=== PATIENT | female | born 1990 ===

== ENCOUNTER 2016-08-06 09:39 | Emergency (ER) | payer SELFPAY ==
[2016-08-06 09:40] VITALS: BMI 18.7
[2016-08-06 09:50] VITALS: O2SAT 100
[2016-08-06] MEDS ORDERED: Sodium Chloride 0.9% 1,000 ML IV ONE (10:13)
[2016-08-06] MEDS ORDERED: Sodium Chloride 0.9% 1,000 ML ONE (10:21)
[2016-08-06 10:34] LABS: RBC URINE 4 /hpf (0-3); URINE BILIRUBIN NEGATIVE (NEGATIVE); URINE BLOOD 1+ (NEGATIVE); URINE COLOR Yellow (YELLOW); URINE GLUCOSE (UA) NORMAL (Normal); URINE KETONE NEGATIVE (NEGATIVE); URINE LEUKOCYTE ESTERASE NEG Leu/uL (Negative); URINE PROTEIN NEGATIVE (NEGATIVE); URINE UROBILINOGEN NORMAL mg/dL (0.2-1.0); WBC URINE 2 /hpf (0-5)
[2016-08-06 10:36] LABS: BASO # 0.1 K/uL (0.0-0.2); BASO % 0.6 % (0.0-2.0); EOS # 0.1 K/uL (0.0-0.7); EOS % 0.8 % (0.0-4.0); HEMATOCRIT 33.5 % (34.0-47.0); LYMPH # 1.6 K/uL (1.0-4.3); LYMPH % 17.1 % (20.0-40.0); MEAN CELL VOLUME 82.3 fL (81.0-99.0); MEAN CORPUSCULAR HGB CONC 32.8 g/dL (33.0-37.0); MONO # 0.6 K/uL (0.0-0.8); MONO % 6.3 % (0.0-10.0); RED CELL DISTRIBUTION WIDTH 14.2 % (11.5-14.5); WHITE BLOOD COUNT 9.2 K/uL (4.8-10.8)
[2016-08-06 10:45] LABS: CHLORIDE 103 mmol/L (98-107); POTASSIUM 3.6 mmol/L (3.6-5.2); SODIUM 138 mmol/L (132-148)
[2016-08-06 10:47] LABS: BILIRUBIN,TOTAL 0.4 mg/dL (0.2-1.3); CARBON DIOXIDE 21 mmol/L (22-30); GFR AFRICAN-AMERICAN > 60
[2016-08-06 10:48] LABS: ALB/GLOB RATIO 1.2 (1.0-2.1); ALKALINE PHOSPHATASE 39 U/L (38-126); ALT/SGPT 20 U/L (9-52); AST/SGOT 21 U/L (14-36); BLOOD UREA NITROGEN 11 mg/dL (7-17); CALCIUM 8.8 mg/dl (8.6-10.4); GLUCOSE,RANDOM 83 mg/dL (65-105); TOTAL PROTEIN 7.2 g/dL (6.3-8.3)
--- NOTE | 2016-08-06 11:31 | C.PDOC ---
History Of Present Illness 26 y/o female, presents to the ED for evaluation of lower abdominal cramping pain and vaginal bleeding which began yesterday. Patient states she recently took an at-home test, and the result was positive. Patient states her LMP was 06/23/16 and denies history of previous pregnancies. Otherwise, patient denies fever, chills, back pain, nausea, vomiting, diarrhea, dysuria, or hematuria. Time Seen by Provider: 08/06/16 10:14 Chief Complaint (Nursing): Female Genitourinary History Per: Patient History/Exam Limitations: no limitations Onset/Duration Of Symptoms: Hrs Current Symptoms Are (Timing): Still Present Quality Of Discomfort: Cramping, "Pain" Associated Symptoms: denies: Fever, Chills, Nausea, Vomiting, Diarrhea, Urinary Symptoms (no dysuria/hematuria ) Alleviating Factors: None Additional History Per: Patient Abnormal Vaginal Bleeding: Yes Last Menstral Period: 06/23/16 Past Medical History Reviewed: Historical Data, Nursing Documentation, Vital Signs Vital Signs: Last Vital Signs Temp 98 F 08/06/16 12:41 Pulse 74 08/06/16 12:41 Resp 16 08/06/16 12:41 BP 106/70 08/06/16 12:41 Pulse Ox 100 08/06/16 12:41 - Medical History PMH: Anxiety, Asthma Surgical History: Hernia Repair Family History: States: Unknown Family Hx - Social History Hx Tobacco Use: No Hx Alcohol Use: Yes Hx Substance Use: No - Immunization History Hx Tetanus Toxoid Vaccination: No Hx Influenza Vaccination: No Hx Pneumococcal Vaccination: No Review Of Systems Except As Marked, All Systems Reviewed And Found Negative. Constitutional: Negative for: Fever, Chills Gastrointestinal: Positive for: Abdominal Pain (lower ). Negative for: Nausea, Vomiting, Diarrhea Genitourinary: Positive for: Vaginal Bleeding. Negative for: Dysuria, Hematuria Musculoskeletal: Negative for: Back Pain Physical Exam - Physical Exam Appears: Non-toxic, No Acute Distress Skin: Normal Color, Warm, Dry Head: Atraumatic, Normacephalic Eye(s): bilateral: Normal Inspection Oral Mucosa: Moist Neck: Normal ROM Chest: Symmetrical, No Deformity, No Tenderness Cardiovascular: Rhythm Regular, No Murmur Respiratory: Normal Breath Sounds, No Rales, No Rhonchi, No Wheezing Gastrointestinal/Abdominal: Soft, Tenderness (mild, suprapubic ), No Mass, No Distention, No Guarding, No Rebound Back: Normal Inspection, No Vertebral Tenderness, No Paraspinal Tenderness Extremity: Bilateral: Atraumatic, Normal Color And Temperature, Normal ROM Neurological/Psych: Oriented x3, Normal Speech Gait: Steady ED Course And Treatment - Laboratory Results Result Diagrams: 08/06/16 10:32 08/06/16 10:32 Lab Interpretation: No Acute Changes O2 Sat by Pulse Oximetry: 100 (on RA) Pulse Ox Interpretation: Normal - CT Scan/US Transvaginal US Other Rad Studies (CT/US): Interpreted By Me, Read By Radiologist, Radiology Report Reviewed CT/US Interpretation: Accession No. : [id number]. Patient Name / ID : MELISSA MORAN / [id number]. Exam Date : 08/06/2016 11:15:52 ( Approved ). Study Comment : Sex / Age : F / 26Y. Creator : Anahi Hawthorne MD. Dictator : Anahi Hawthorne MD. Rice Farmworker : Pipe Insulator Helper : Anahi Hawthorne MD. Approver2 : Report Date : 08/06/2016 11:57:35. My Comment : . Indication: vag bleed, and pain. Comparison: None available. Technique: Transvaginal pelvic ultrasound. Findings: The uterus measures approximately 8.2 x 4.1 x 4.8 cm. Anteverted. The endometrium appears heterogeneous and measures approximately 1.1 cm. No evidence of intrauterine gestational sac. The right ovary measures 2.8 x 1.5 x 2.1 cm. The left ovary measures 2.8 x 1.3 x 2.3 cm. Blood flow was demonstrated to both ovaries. Small pelvic free fluid. Impression: No evidence of intrauterine gestational sac. If indeed the patient is based on serum beta HCG values, the sonographic findings represent either: Very early IUP; embryonic demise; ectopic gestation. Follow-up with serial quantitative serum beta HCG measurements and post OBGYN follow-up is mandatory, since ectopic gestation cannot be excluded based only on sonographic findings. Heterogeneous endometrium measures approximately 1.1 cm. Question presence of blood products. Small pelvic free fluid. Medical Decision Making Medical Decision Making: Impression: 26 y/o female with lower abdominal pain, vaginal bleeding and is Plan: * labs * Transvaginal US * IV fluids Progress Notes: labs and US ordered and reviewed. Patient received IV Fluids. US Impression: No evidence of intrauterine gestational sac. If indeed the patient is based on serum beta HCG values, the sonographic findings represent either: Very early IUP; embryonic demise; ectopic gestation. Follow-up with serial quantitative serum beta HCG measurements and post OBGYN follow-up is mandatory, since ectopic gestation cannot be excluded based only on sonographic findings. Heterogeneous endometrium measures approximately 1.1 cm. Question presence of blood products. Small pelvic free fluid. Re-eval: Upon reevaluation patient resting comfortable in no distress. I explained lab and US findings to patient. I advised patient on the importance of follow up in 2-3 days for repeat bhcg and US. Patient verbalized understanding. Patient stable for discharge Disposition Counseled Patient/Family Regarding: Diagnosis, Need For Followup, Rx Given - Disposition Referrals: [facility] [Outside] 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 - Scribe Statement The provider has reviewed the documentation as recorded by the Scribe (Deepali Connolly) All medical record entries made by the Scribe were at my direction and personally dictated by me. I have reviewed the chart and agree that the record accurately reflects my personal performance of the history, physical exam, medical decision making, and the department course for this patient. I have also personally directed, reviewed, and agree with the discharge instructions and disposition.
--- NOTE | 2016-08-06 11:58 | US ---
Indication: vag bleed, and pain Comparison: None available. Technique: Transvaginal pelvic ultrasound. Findings: The uterus measures approximately 8.2 x 4.1 x 4.8 cm. Anteverted. The endometrium appears heterogeneous and measures approximately 1.1 cm. No evidence of intrauterine gestational sac. The right ovary measures 2.8 x 1.5 x 2.1 cm. The left ovary measures 2.8 x 1.3 x 2.3 cm. Blood flow was demonstrated to both ovaries. Small pelvic free fluid. Impression: No evidence of intrauterine gestational sac. If indeed the patient is based on serum beta HCG values, the sonographic findings represent either: Very early IUP; embryonic demise; ectopic gestation. Follow-up with serial quantitative serum beta HCG measurements and post OBGYN follow-up is mandatory, since ectopic gestation cannot be excluded based only on sonographic findings. Heterogeneous endometrium measures approximately 1.1 cm. Question presence of blood products. Small pelvic free fluid.
[2016-08-06 12:42] VITALS: BP 106/70; PULSE 74; RESP 16; TEMP 98
== END 2016-08-06 12:41 | disposition home or self-care (01) ==
LOC: C.ER 09:39
DX: O20.0 Threatened abortion (principal); Z3A.00 Weeks of gestation of pregnancy not specified
CPT/HCPCS: 76830; 80053; 81001; 84702; 84703; 85025; 86850; 86900; 96360; 99284; J7040

== ENCOUNTER 2017-01-14 13:43 | Emergency (ER) | payer OTHER ==
[2017-01-14 13:47] VITALS: RESP 16; O2SAT 99
--- NOTE | 2017-01-14 14:11 | C.PDOC ---
History Of Present Illness 26 yr old female presents to the ER with complaints if fever, sore throat and body aches since yesterday. Patient denies cough, chest pain, SOB, nausea, vomiting or headache. Time Seen by Provider: 01/14/17 13:50 Chief Complaint (Nursing): Flu-like Symptoms History Per: Patient History/Exam Limitations: no limitations Onset/Duration Of Symptoms: Days (1) Current Symptoms Are (Timing): Still Present Sick Contacts (Context): None Past Medical History Reviewed: Historical Data, Nursing Documentation, Vital Signs Vital Signs: Last Vital Signs Temp 98.5 F 01/14/17 13:45 Pulse 70 01/14/17 13:45 Resp 16 01/14/17 13:45 BP 125/88 01/14/17 13:45 Pulse Ox 99 01/14/17 14:50 - Medical History PMH: Anxiety, Asthma Surgical History: Hernia Repair Family History: States: No Known Family Hx - Social History Hx Tobacco Use: No Hx Alcohol Use: Yes Hx Substance Use: No - Immunization History Hx Tetanus Toxoid Vaccination: No Hx Influenza Vaccination: No Hx Pneumococcal Vaccination: No Review Of Systems Except As Marked, All Systems Reviewed And Found Negative. Constitutional: Positive for: Fever (Subjective), Other ((+) Body aches ) ENT: Positive for: Throat Pain (Sore throat ) Cardiovascular: Negative for: Chest Pain Respiratory: Negative for: Cough, Shortness of Breath Gastrointestinal: Negative for: Nausea, Vomiting Neurological: Negative for: Headache Physical Exam - Physical Exam Appears: Non-toxic, No Acute Distress Skin: Warm, Dry, No Rash Head: Atraumatic, Normacephalic Ear(s): Bilateral: Normal Oral Mucosa: Moist Throat: Erythema, Exudate Neck: Normal, Normal ROM, Supple Chest: Symmetrical, No Tenderness Cardiovascular: Rhythm Regular, No Murmur Respiratory: Normal Breath Sounds, No Rales, No Rhonchi, No Stridor, No Wheezing Extremity: Normal ROM, No Swelling Neurological/Psych: Oriented x3, Normal Speech, Normal Motor ED Course And Treatment - Laboratory Results Result Diagrams: 01/14/17 15:05 01/14/17 15:05 O2 Sat by Pulse Oximetry: 99 (RA) Pulse Ox Interpretation: Normal Medical Decision Making Medical Decision Making: PLAN: * Influenza * Rapid Strep * Tylenol PO while in er, pt later reported mild abdominal pain intially llq, later rlq. ct/ labs added. ct shows ruptured ovarian cyst. pain resolved in er. pt asking for d /c. Disposition - Disposition Disposition: HOME/ ROUTINE Disposition Time: 14:46 Condition: STABLE Additional Instructions: please follow up with your doctor/clinic. return to er with worsening symptoms or concerns. Prescriptions: Azithromycin [Zithromax] 250 mg PO DAILY #6 tab Instructions: Pharyngitis (ED), Acute Abdominal Pain (ED), Ovarian Cyst (ED) Forms: [employer] (Occitan) - Clinical Impression Clinical Impression: Pharyngitis, Abdominal pain - Scribe Statement The provider has reviewed the documentation as recorded by the Rudi Marsh Provider Attestation: All medical record entries made by the Rudi were at my direction and personally dictated by me. I have reviewed the chart and agree that the record accurately reflects my personal performance of the history, physical exam, medical decision making, and the department course for this patient. I have also personally directed, reviewed, and agree with the discharge instructions and disposition.
[2017-01-14] MEDS ORDERED: Sodium Chloride 0.9% 1,000 ML IV ONE (14:51)
[2017-01-14 15:11] LABS: BASO % 0.3 % (0.0-2.0); EOS % 0.3 % (0.0-4.0); HEMATOCRIT 38.5 % (34.0-47.0); LYMPH % 8.5 % (20.0-40.0); MEAN CELL VOLUME 83.2 fL (81.0-99.0); MEAN CORPUSCULAR HEMOGLOBIN 27.7 pg (27.0-31.0); MEAN CORPUSCULAR HGB CONC 33.3 g/dL (33.0-37.0); MEAN PLATELET VOLUME 8.4 fL (7.2-11.7); MONO # 0.8 K/uL (0.0-0.8); MONO % 6.7 % (0.0-10.0); PLATELET COUNT 241 K/uL (130-400); RED CELL DISTRIBUTION WIDTH 14.4 % (11.5-14.5); WHITE BLOOD COUNT 11.8 K/uL (4.8-10.8)
[2017-01-14 15:20] LABS: INR 1.1
[2017-01-14 15:22] LABS: CHLORIDE 99 mmol/L (98-107)
[2017-01-14 15:24] LABS: POTASSIUM 4.5 mmol/L (3.6-5.2); SODIUM 136 mmol/L (132-148)
[2017-01-14 15:26] LABS: ALB/GLOB RATIO 1.2 (1.0-2.1); ALKALINE PHOSPHATASE 51 U/L (38-126); ALT/SGPT 24 U/L (9-52); AST/SGOT 29 U/L (14-36); BILIRUBIN,TOTAL 0.6 mg/dL (0.2-1.3); BLOOD UREA NITROGEN 16 mg/dL (7-17); CARBON DIOXIDE 23 mmol/L (22-30); GFR AFRICAN-AMERICAN > 60; TOTAL PROTEIN 8.4 g/dL (6.3-8.3)
[2017-01-14 15:27] LABS: CALCIUM 9.8 mg/dl (8.6-10.4); GLUCOSE,RANDOM 72 mg/dL (65-105)
[2017-01-14 15:30] LABS: URINE BACTERIA RARE (<OCC); URINE BILIRUBIN NEGATIVE (NEGATIVE); URINE BLOOD NEGATIVE (NEGATIVE); URINE COLOR Straw (YELLOW); URINE GLUCOSE (UA) NORMAL (Normal); URINE KETONE TRACE mg/dL (NEGATIVE); URINE LEUKOCYTE ESTERASE NEG Leu/uL (Negative); URINE PROTEIN NEGATIVE (NEGATIVE); URINE UROBILINOGEN NORMAL mg/dL (0.2-1.0); WBC URINE < 1 /hpf (0-5)
[2017-01-14 15:41] LABS: BASOPHIL 1 % (0-2); NEUTROPHIL 88 % (50-75); TOTAL CELLS COUNTED 100
[2017-01-14] MEDS ORDERED: Iodixanol 320 MG/ML 100 ML BOTTLE IV ONE (16:08)
--- NOTE | 2017-01-14 17:06 | CT ---
PROCEDURE: CT Abdomen and Pelvis with contrast HISTORY: lower abd pain COMPARISON: None. TECHNIQUE: Contrast dose: Visipaque 320, 100 cc. Radiation dose: Total exam DLP = 200.38 mGy-cm. This CT exam was performed using one or more of the following dose reduction techniques: Automated exposure control, adjustment of the mA and/or kV according to patient size, and/or use of iterative reconstruction technique. FINDINGS: LOWER THORAX: Unremarkable. LIVER: Unremarkable. No gross lesion or ductal dilatation. GALLBLADDER AND BILE DUCTS: Unremarkable. PANCREAS: Unremarkable. No gross lesion or ductal dilatation. SPLEEN: Unremarkable. ADRENALS: Unremarkable. No mass. KIDNEYS AND URETERS: Unremarkable. No hydronephrosis. No solid mass. VASCULATURE: Unremarkable. No aortic aneurysm. BOWEL: Unremarkable. No obstruction. No gross mural thickening. The lack of oral contrast limits evaluation of the bowel. Retained fecal material obscures colon. APPENDIX: Not identified. Clinically correlate. PERITONEUM: No abdominal ascites region however there is a mild amount of fluid in the right as compartment. LYMPH NODES: Unremarkable. No enlarged lymph nodes. BLADDER: Unremarkable. REPRODUCTIVE: Ruptured right adnexal cyst is suggested which may be the cause limited cul-de-sac and pibwg-bzipfgg-omyi-left pelvic fluid. Inhomogeneous enhancing the uterus is suspicious for uterine fibroids and a small on fluid is suggestive of the endometrial cavity. BONES: No acute fracture. OTHER FINDINGS: None. IMPRESSION: 1. Limited right greater left adnexal fluid extending through the cul sac minimally with a probable collapsed right adnexal cyst suggestive of ovarian cyst rupture recently. Clinically correlate. 2. The remaining examination is unremarkable.
[2017-01-14 17:28] VITALS: BP 122/79; PULSE 84; TEMP 97.8
== END 2017-01-14 17:27 | disposition home or self-care (01) ==
LOC: C.ER 13:43
DX: R10.9 Unspecified abdominal pain (principal); J02.9 Acute pharyngitis, unspecified
CPT/HCPCS: 74177; 80053; 81001; 83690; 84703; 85025; 85610; 85730; 87070; 87430; 87804; 96361; 96374; 99283; C9113; J7040; Q9967

== ENCOUNTER 2017-01-16 00:54 | Emergency (ER) | payer OTHER ==
[2017-01-16 01:22] VITALS: RESP 20
--- NOTE | 2017-01-16 01:25 | C.PDOC ---
History Of Present Illness The patient presents to the ED for evaluation of fever and sore throat which began around 3 days ago. Patient was evaluated in [facility] on 01/14 for similar symptoms and had a negative workup. Patient denies ear pain, cough, sick contacts. Time Seen by Provider: 01/16/17 01:25 Chief Complaint (Nursing): Flu-like Symptoms History Per: Patient History/Exam Limitations: no limitations Onset/Duration Of Symptoms: Days (3) Current Symptoms Are (Timing): Still Present Location Of Pain: Throat Sick Contacts (Context): None Associated Symptoms: Fever, Sore Throat. denies: Cough Ear Symptoms: Bilateral: None Severity: Mild Pain Scale Rating Of: 2 Recent travel outside of the [place]: No Additional History Per: Patient Past Medical History Reviewed: Historical Data, Nursing Documentation, Vital Signs Vital Signs: Last Vital Signs Temp 103.1 F H 01/16/17 01:03 Pulse 140 H 01/16/17 01:03 Resp 20 01/16/17 01:03 BP 118/87 01/16/17 01:03 Pulse Ox 97 01/16/17 02:29 - Medical History PMH: Anxiety, Asthma Surgical History: Hernia Repair Family History: States: Unknown Family Hx - Social History Hx Tobacco Use: No Hx Alcohol Use: Yes Hx Substance Use: No - Immunization History Hx Tetanus Toxoid Vaccination: No Hx Influenza Vaccination: No Hx Pneumococcal Vaccination: No Review Of Systems Constitutional: Positive for: Fever ENT: Positive for: Throat Pain. Negative for: Ear Pain, Nose Discharge, Nose Congestion Cardiovascular: Negative for: Chest Pain, Palpitations Respiratory: Negative for: Cough, Shortness of Breath Gastrointestinal: Negative for: Nausea, Vomiting, Abdominal Pain Skin: Negative for: Rash, Lesions, Jaundice, Bruising Neurological: Negative for: Weakness, Numbness Physical Exam - Physical Exam Appears: Non-toxic, No Acute Distress Skin: Warm, Dry Head: Normacephalic Eye(s): bilateral: Normal Inspection Ear(s): Bilateral: Normal Nose: No Discharge Oral Mucosa: Moist Throat: Erythema (mild), No Exudate Neck: Supple Chest: Symmetrical, No Deformity, No Tenderness Cardiovascular: Rhythm Regular, No Murmur Respiratory: No Rales, No Rhonchi, No Wheezing Extremity: Normal ROM Neurological/Psych: Oriented x3 Gait: Steady ED Course And Treatment - Laboratory Results Result Diagrams: 01/16/17 01:34 09/24/17 01:34 O2 Sat by Pulse Oximetry: 97 (on RA) Pulse Ox Interpretation: Normal Progress Note: labs ordered and reviewed. Patient received Toradol IVP, Tylenol PO, Solu-Medrol IVP, and IV Fluids. Reevaluation Time: 02:49 Reassessment Condition: Improved Disposition Counseled Patient/Family Regarding: Studies Performed, Diagnosis, Need For Followup, Rx Given - Disposition Referrals: [facility] [Outside] [facility] [Outside] Disposition: HOME/ ROUTINE Disposition Time: 01:25 Condition: FAIR Prescriptions: Azithromycin [Zithromax Tri-Elpidio] 500 mg PO DAILY #3 tablet Instructions: Pharyngitis (ED) Forms: [facility] (Filipino) - Clinical Impression Clinical Impression: Pharyngitis - Scribe Statement The provider has reviewed the documentation as recorded by the Scribe (Deepali Connolly) Provider Attestation: All medical record entries made by the Scribe were at my direction and personally dictated by me. I have reviewed the chart and agree that the record accurately reflects my personal performance of the history, physical exam, medical decision making, and the department course for this patient. I have also personally directed, reviewed, and agree with the discharge instructions and disposition.
[2017-01-16] MEDS ORDERED: Sodium Chloride 0.9% 1,000 ML IV ONE (01:28)
[2017-01-16] MEDS ORDERED: MethylPREDNISolone 40 mg Vial IVP STA (01:28)
[2017-01-16 01:37] LABS: BASO % 0.3 % (0.0-2.0); EOS % 0.1 % (0.0-4.0); HEMATOCRIT 39.6 % (34.0-47.0); LYMPH # 1.1 K/uL (1.0-4.3); LYMPH % 8.1 % (20.0-40.0); MEAN CELL VOLUME 81.9 fL (81.0-99.0); MEAN CORPUSCULAR HEMOGLOBIN 27.6 pg (27.0-31.0); MEAN CORPUSCULAR HGB CONC 33.7 g/dL (33.0-37.0); MEAN PLATELET VOLUME 8.2 fL (7.2-11.7); MONO # 1.1 K/uL (0.0-0.8); MONO % 7.9 % (0.0-10.0); PLATELET COUNT 225 K/uL (130-400); RED CELL DISTRIBUTION WIDTH 14.2 % (11.5-14.5); WHITE BLOOD COUNT 13.3 K/uL (4.8-10.8)
[2017-01-16] MEDS ORDERED: Sodium Chloride 0.9% 1,000 ML ONE (01:38)
[2017-01-16 01:40] LABS: RBC URINE 5 /hpf (0-3); URINE BACTERIA RARE (<OCC); URINE BILIRUBIN NEGATIVE (NEGATIVE); URINE BLOOD NEGATIVE (NEGATIVE); URINE COLOR Yellow (YELLOW); URINE GLUCOSE (UA) NORMAL (Normal); URINE KETONE TRACE mg/dL (NEGATIVE); URINE LEUKOCYTE ESTERASE NEG Leu/uL (Negative); URINE PROTEIN NEGATIVE (NEGATIVE); URINE UROBILINOGEN NORMAL mg/dL (0.2-1.0); WBC URINE 3 /hpf (0-5)
[2017-01-16 01:46] LABS: CHLORIDE 97 mmol/L (98-107)
[2017-01-16 01:47] LABS: SODIUM 135 mmol/L (132-148)
[2017-01-16 01:50] LABS: BLOOD UREA NITROGEN 13 mg/dL (7-17); CALCIUM 9.6 mg/dl (8.6-10.4); CARBON DIOXIDE 22 mmol/L (22-30); GFR AFRICAN-AMERICAN > 60; GLUCOSE,RANDOM 88 mg/dL (65-105)
[2017-01-16] MEDS ORDERED: cefTRIAXone IV 1 gm in Dextros 50 ML IVPB ONE ×2 (02:52→03:12)
[2017-01-16 02:59] LABS: NEUTROPHIL 83 % (50-75); TOTAL CELLS COUNTED 100
[2017-01-16] MEDS ORDERED: cefTRIAXone IV 1 gm in Dextros 1 GM in Dextrose 5% In Water 50 ML IVPB STA (03:25)
[2017-01-16 03:53] VITALS: BP 112/72; PULSE 112; TEMP 98.1; O2SAT 98
== END 2017-01-16 03:53 | disposition home or self-care (01) ==
LOC: C.ER 00:54
DX: J02.9 Acute pharyngitis, unspecified (principal)
CPT/HCPCS: 80048; 81001; 85025; 96361; 96374; 96375; 99283; J0696; J1885; J2920; J7040

== ENCOUNTER 2017-03-22 10:30 | Emergency (ER) | payer OTHER ==
[2017-03-22 12:09] LABS: RBC URINE 1 /hpf (0-3); URINE BACTERIA RARE (<OCC); URINE BILIRUBIN NEGATIVE (NEGATIVE); URINE BLOOD NEGATIVE (NEGATIVE); URINE COLOR Yellow (YELLOW); URINE GLUCOSE (UA) NORMAL (Normal); URINE KETONE NEGATIVE (NEGATIVE); URINE LEUKOCYTE ESTERASE 1+ Leu/uL (Negative); URINE PROTEIN NEGATIVE (NEGATIVE); URINE UROBILINOGEN NORMAL mg/dL (0.2-1.0); WBC URINE 11 /hpf (0-5)
--- NOTE | 2017-03-22 12:18 | C.PDOC ---
History Of Present Illness 27 y/o female presents to ED with c/o LLQ abdominal pain for 3 days. Patient describes pain as sharp. Denies nausea, vomiting, diarrhea, fever, chills, or urinary symptoms. Patient has not taken any medications for current symptoms. Time Seen by Provider: 03/22/17 11:27 Chief Complaint (Nursing): Abdominal Pain History Per: Patient History/Exam Limitations: no limitations Onset/Duration Of Symptoms: Days (3) Current Symptoms Are (Timing): Still Present Location Of Pain/Discomfort: LLQ Radiation Of Pain To:: None Quality Of Discomfort: Sharp, "Pain" Associated Symptoms: denies: Fever, Chills, Nausea, Vomiting, Diarrhea, Urinary Symptoms Recent travel outside of the [place]: No Past Medical History Reviewed: Historical Data, Nursing Documentation, Vital Signs Vital Signs: Last Vital Signs Temp 97.9 F 03/22/17 10:56 Pulse 71 03/22/17 10:56 Resp 18 03/22/17 10:56 BP 116/82 03/22/17 10:56 Pulse Ox 100 03/22/17 15:02 - Medical History PMH: Anxiety, Asthma Surgical History: Hernia Repair Family History: States: Unknown Family Hx - Social History Hx Tobacco Use: No Hx Alcohol Use: Yes Hx Substance Use: No - Immunization History Hx Tetanus Toxoid Vaccination: No Hx Influenza Vaccination: No Hx Pneumococcal Vaccination: No Review Of Systems Except As Marked, All Systems Reviewed And Found Negative. Constitutional: Negative for: Fever, Chills Cardiovascular: Negative for: Chest Pain Respiratory: Negative for: Cough, Shortness of Breath Gastrointestinal: Positive for: Abdominal Pain. Negative for: Nausea, Vomiting Genitourinary: Negative for: Dysuria, Hematuria, Vaginal Bleeding Skin: Negative for: Rash Physical Exam - Physical Exam Appears: Non-toxic, No Acute Distress Skin: Normal Color, Warm, Dry Head: Atraumatic, Normacephalic Oral Mucosa: Moist Chest: Symmetrical Cardiovascular: Rhythm Regular Respiratory: Normal Breath Sounds, No Rales, No Rhonchi, No Wheezing Gastrointestinal/Abdominal: Bowel Sounds, Soft, Tenderness (minimal, LLQ/LUQ), No Guarding, No Rebound Back: Normal Inspection, No CVA Tenderness Extremity: Normal ROM, Capillary Refill (< 2 sec.) Neurological/Psych: Oriented x3, Normal Speech, Normal Cognition ED Course And Treatment - Laboratory Results Result Diagrams: 03/22/17 12:24 03/22/17 12:24 O2 Sat by Pulse Oximetry: 100 (RA) Pulse Ox Interpretation: Normal - CT Scan/US Pelvic/TV Ultrasound Other Rad Studies (CT/US): Read By Radiologist, Radiology Report Reviewed CT/US Interpretation: IMPRESSION: Unremarkable pelvic ultrasound. Medical Decision Making Medical Decision Making: Assessment: abdominal pain Plan: * Labs * Ultrasound * Reassess Progress: On reevaluation, patient feels better, with improvement of abdominal pain. Labs normal, ultrasound negative. Will discharge home, dx of abdominal pain, advised follow up with PMD/clinic. Disposition Counseled Patient/Family Regarding: Studies Performed, Diagnosis, Need For Followup, Rx Given - Disposition Disposition: HOME/ ROUTINE Disposition Time: 15:00 Condition: IMPROVED Additional Instructions: follow up with your doctor in 2 days call to make an appointment take medications as prescribed return to hospital if symptoms worsens or progress Prescriptions: Naproxen [Naprosyn] 500 mg PO BID PRN #16 tab PRN Reason: Pain, Moderate (4-7) Instructions: Abdominal Pain (ED) Forms: [facility] (Australian), General Discharge Instructions - Clinical Impression Clinical Impression: Abdominal pain - Scribe Statement The provider has reviewed the documentation as recorded by the Scribe SM All medical record entries made by the Scribe were at my direction and personally dictated by me. I have reviewed the chart and agree that the record accurately reflects my personal performance of the history, physical exam, medical decision making, and the department course for this patient. I have also personally directed, reviewed, and agree with the discharge instructions and disposition.
[2017-03-22 12:32] LABS: BASO # 0.1 K/uL (0.0-0.2); BASO % 0.7 % (0.0-2.0); EOS % 0.4 % (0.0-4.0); HEMATOCRIT 38.7 % (34.0-47.0); LYMPH # 1.5 K/uL (1.0-4.3); LYMPH % 16.9 % (20.0-40.0); MEAN CELL VOLUME 83.2 fL (81.0-99.0); MEAN CORPUSCULAR HEMOGLOBIN 27.5 pg (27.0-31.0); MEAN CORPUSCULAR HGB CONC 33.1 g/dL (33.0-37.0); MEAN PLATELET VOLUME 8.6 fL (7.2-11.7); MONO # 0.6 K/uL (0.0-0.8); MONO % 6.7 % (0.0-10.0); NRBC % 0.2 % (0.0-2.0); RED CELL DISTRIBUTION WIDTH 14.9 % (11.5-14.5); WHITE BLOOD COUNT 8.7 K/uL (4.8-10.8)
[2017-03-22 12:44] LABS: ALB/GLOB RATIO 1.4 (1.0-2.1); ALKALINE PHOSPHATASE 45 U/L (38-126); ALT/SGPT 30 U/L (9-52); AST/SGOT 22 U/L (14-36); BILIRUBIN,TOTAL 0.9 mg/dL (0.2-1.3); BLOOD UREA NITROGEN 13 mg/dL (7-17); CALCIUM 8.6 mg/dl (8.6-10.4); CARBON DIOXIDE 22 mmol/L (22-30); CHLORIDE 99 mmol/L (98-107); GFR AFRICAN-AMERICAN > 60; GLUCOSE,RANDOM 70 mg/dL (65-105); POTASSIUM 3.8 mmol/L (3.6-5.2); SODIUM 135 mmol/L (132-148); TOTAL PROTEIN 7.7 g/dL (6.3-8.3)
--- NOTE | 2017-03-22 14:50 | US ---
HISTORY: abd pain COMPARISON: None available. TECHNIQUE: Grayscale, color Doppler and spectral evaluation of the pelvis, performed transabdominally and transvaginally. FINDINGS: UTERUS: Measures 8.1 x 3.7 x 5.0 cm. Anteverted. Normal in size and appearance. No fibroid or other mass lesion seen. ENDOMETRIUM: Measures 13 mm in diameter. Unremarkable. CERVIX: No cervical abnormality identified. RIGHT OVARY: Measures 2.9 x 1.7 x 2.3 cm. No solid mass. Normal flow. LEFT OVARY: Measures 4.1 x 2.2 x 3.0 cm. No solid mass. Normal flow. Dominant follicle measuring 1.5 x 1.5 x 0.8 centimeter. FREE FLUID: Small volume free fluid in the cul-de-sac. OTHER FINDINGS: None. IMPRESSION: Unremarkable pelvic ultrasound.
[2017-03-22 15:29] VITALS: BP 109/75; PULSE 67; RESP 16; TEMP 97.5; O2SAT 98
== END 2017-03-22 15:50 | disposition home or self-care (01) ==
LOC: C.ER 10:30
DX: R10.32 Left lower quadrant pain (principal)
CPT/HCPCS: 76830; 76856; 80053; 81001; 83690; 84703; 85025; 96374; 96375; 99285; J1885

== ENCOUNTER 2018-04-22 06:36 | Emergency (ER) | payer OTHER ==
[2018-04-22 06:44] VITALS: TEMP 98.3
[2018-04-22] MEDS ORDERED: Albuterol-Ipratrop 3 mg / 0.5 (3 ml) UD INH STA ×2 (07:06→08:05)
[2018-04-22] MEDS ORDERED: guaiFENesin 100 mg/5 ml Syrup UD PO STA (07:07)
[2018-04-22] MEDS ORDERED: guaiFENesin 100 mg/5 ml Syrup UD ONE (07:23)
[2018-04-22] MEDS ORDERED: Albuterol-Ipratrop 3 mg / 0.5 (3 ml) UD ONE ×2 (07:23→08:18)
--- NOTE | 2018-04-22 07:46 | C.PDOC ---
History Of Present Illness 28 year old female presents to the ED for evaluation of a dry, non-productive cough which began at around 0300 today. Patient has a history of asthma, and states she recently ran out of her albuterol pump. Patient denies fever, chills. Time Seen by Provider: 04/22/18 07:02 Chief Complaint (Nursing): Cough, Cold, Congestion History Per: Patient History/Exam Limitations: no limitations Onset/Duration Of Symptoms: Hrs Current Symptoms Are (Timing): Still Present Associated Symptoms: Cough. denies: Sputum Production, Fever Additional History Per: Patient Past Medical History Reviewed: Historical Data, Nursing Documentation, Vital Signs Vital Signs: Last Vital Signs Temp 98.3 F 04/22/18 06:40 Pulse 104 H 04/22/18 06:50 Resp 16 04/22/18 06:50 BP 139/92 H 04/22/18 06:50 Pulse Ox 99 04/22/18 06:50 - Medical History PMH: Anxiety, Asthma Surgical History: Hernia Repair Family History: States: Unknown Family Hx - Social History Hx Tobacco Use: No Hx Alcohol Use: Yes Hx Substance Use: No - Immunization History Hx Tetanus Toxoid Vaccination: No Hx Influenza Vaccination: No Hx Pneumococcal Vaccination: No Review Of Systems Constitutional: Negative for: Fever, Chills Respiratory: Positive for: Cough. Negative for: Sputum Physical Exam - Physical Exam Appears: Non-toxic, No Acute Distress Skin: Normal Color, Warm, Dry Head: Atraumatic, Normacephalic Eye(s): bilateral: Normal Inspection Oral Mucosa: Moist Neck: Supple Chest: Symmetrical, No Deformity, No Tenderness Cardiovascular: Rhythm Regular, No Murmur Respiratory: Normal Breath Sounds, No Rales, No Rhonchi, No Wheezing, Other (dry, non-productive cough ) Extremity: Normal ROM, Capillary Refill (less than 2 seconds ) Neurological/Psych: Oriented x3, Normal Speech, Normal Cognition ED Course And Treatment O2 Sat by Pulse Oximetry: 99 Pulse Ox Interpretation: Normal Progress Note: Albuterol INH, Motrin PO, Robitussin PO given. Medical Decision Making Medical Decision Making: mild asthma exacerbation lost her MDI improved with ED nebs never had nebs machine @ home. refill MDI Disposition Doctor Will See Patient In The: Office Counseled Patient/Family Regarding: Studies Performed, Diagnosis - Disposition Referrals: [facility] [Outside] [employer] [facility] [place] [Outside] [facility] [Outside] [facility] [Outside] Disposition: HOME/ ROUTINE Disposition Time: 07:45 Condition: GOOD Additional Instructions: bomba de Albuterol 2 puffs cada 4 horas chasidy necessario Siempre usa con el Aerochamber Spacer (tubo plastico) para que funccion'a mejor Sigue con nuest[facility] Familiar chasidy necessario Prescriptions: Albuterol HFA [Ventolin HFA 90 mcg/actuation (8 g)] 2 puff IH Q4H PRN #1 puff PRN Reason: asthma Spacer, Inhalation [Aerochamber] 1 dev IH DAILY #1 dev Instructions: Asthma, Adult (DC) Forms: [employer] (Faroese), Work Excuse Print Language: [place]IZ[place] - Clinical Impression Clinical Impression: Asthma attack - Scribe Statement The provider has reviewed the documentation as recorded by the Scribe (Deepali Connolly) Provider Attestation: All medical record entries made by the Scribe were at my direction and personally dictated by me. I have reviewed the chart and agree that the record accurately reflects my personal performance of the history, physical exam, medical decision making, and the department course for this patient. I have also personally directed, reviewed, and agree with the discharge instructions and disposition.
[2018-04-22 09:04] VITALS: BP 126/88; PULSE 112; RESP 18
[2018-04-22 12:26] VITALS: O2SAT 99
== END 2018-04-22 08:55 | disposition home or self-care (01) ==
LOC: C.ER 06:36
DX: J45.909 Unspecified asthma, uncomplicated (principal)

== ENCOUNTER 2018-09-03 05:10 | Emergency (ER) | payer OTHER ==
[2018-09-03 06:09] LABS: BASO # 0.1 K/uL (0.0-0.2); BASO % 0.9 % (0.0-2.0); EOS # 0.1 K/uL (0.0-0.7); EOS % 0.5 % (0.0-4.0); HEMOGLOBIN 15.1 g/dL (11.0-16.0); LYMPH # 2.4 K/uL (1.0-4.3); LYMPH % 23.2 % (20.0-40.0); MEAN CELL VOLUME 84.8 fL (81.0-99.0); MONO # 0.3 K/uL (0.0-0.8); MONO % 3.4 % (0.0-10.0); NEUT # 7.3 K/uL (1.8-7.0); NRBC % 0.1 % (0.0-2.0); RBC 5.4 Mil/uL (3.80-5.20); RED CELL DISTRIBUTION WIDTH 15.4 % (11.5-14.5); WHITE BLOOD COUNT 10.1 K/uL (4.8-10.8)
[2018-09-03 06:21] LABS: ALB/GLOB RATIO 1.2 (1.0-2.1); ALBUMIN 5.2 g/dL (3.5-5.0); ALT/SGPT 15 U/L (9-52); AST/SGOT 29 U/L (14-36); BLOOD UREA NITROGEN 13 mg/dL (7-17); CALCIUM 9.7 mg/dl (8.6-10.4); GFR NON-AFRICAN AMERICAN > 60; LIPASE 105 U/L (23-300); SQUAMOUS EPITHIAL 3 /hpf (0-5); URINE BACTERIA RARE (<OCC); URINE BILIRUBIN NEGATIVE (NEGATIVE); URINE BLOOD 2+ (NEGATIVE); URINE CLARITY Clear (Clear); URINE COLOR Straw (YELLOW); URINE GLUCOSE (UA) NORMAL (Normal); URINE LEUKOCYTE ESTERASE TRACE Leu/uL (Negative); URINE PROTEIN NEGATIVE (NEGATIVE); URINE UROBILINOGEN NORMAL mg/dL (0.2-1.0)
[2018-09-03 06:22] LABS: HCG,QUALITATIVE URINE NEGATIVE (NEGATIVE)
--- NOTE | 2018-09-03 07:26 | C.PDOC ---
History Of Present Illness 28 year old female presents to the Emergency Department complaining of sudden onset of intermittent left sided abdominal quadrant since waking up this morning. Reports pain radiates to the left lower quadrant and back. Denies any fever, diarrhea, GI bleeding, chest pain, or urinary symptoms. States previous history of abdominal surgeries including hernia repair on left abdomen many year ago in [facility]. Denies any trauma. Time Seen by Provider: 09/03/18 07:11 Chief Complaint (Nursing): Abdominal Pain History Per: Patient History/Exam Limitations: no limitations Onset/Duration Of Symptoms: Hrs Current Symptoms Are (Timing): Still Present Location Of Pain/Discomfort: LUQ, LLQ Radiation Of Pain To:: Back Associated Symptoms: Back Pain. denies: Fever, Chills, Nausea, Vomiting, Diarrhea, Chest Pain, Urinary Symptoms Past Medical History Reviewed: Historical Data, Nursing Documentation, Vital Signs Vital Signs: Last Vital Signs Temp 98.1 F 09/03/18 05:19 Pulse 78 09/03/18 05:19 Resp 22 09/03/18 05:19 BP 112/79 09/03/18 05:19 Pulse Ox 99 09/03/18 05:19 Primary Care Provider: Non [facility] Provider, - Medical History PMH: Anxiety, Asthma Surgical History: Hernia Repair Family History: States: No Known Family Hx - Social History Hx Tobacco Use: No Hx Alcohol Use: Yes Hx Substance Use: No - Immunization History Hx Tetanus Toxoid Vaccination: No Hx Influenza Vaccination: No Hx Pneumococcal Vaccination: No Review Of Systems Except As Marked, All Systems Reviewed And Found Negative. Constitutional: Negative for: Fever, Chills Cardiovascular: Negative for: Chest Pain Respiratory: Negative for: Cough, Shortness of Breath Gastrointestinal: Positive for: Abdominal Pain. Negative for: Nausea, Vomiting, Diarrhea Genitourinary: Negative for: Dysuria, Hematuria Musculoskeletal: Positive for: Back Pain Physical Exam - Physical Exam Appears: Non-toxic, No Acute Distress Skin: Warm, Dry, No Rash Head: Normacephalic Eye(s): bilateral: Normal Inspection, PERRL, EOMI Nose: Normal Oral Mucosa: Moist Neck: Supple Chest: Symmetrical, No Tenderness Cardiovascular: Rhythm Regular, No Murmur Respiratory: Normal Breath Sounds, No Rales, No Rhonchi, No Wheezing Gastrointestinal/Abdominal: Bowel Sounds (Normoactive), Soft, Tenderness (mild to moderate left lower quadrant tenderness), No Distention, No Guarding, No Rebound Back: No CVA Tenderness Extremity: No Pedal Edema Extremity: Bilateral: Atraumatic, Normal Color And Temperature, Normal ROM Neurological/Psych: Oriented x3, Normal Speech Gait: Steady ED Course And Treatment - Laboratory Results Result Diagrams: 09/03/18 06:05 09/03/18 06:05 Lab Results: Total Bilirubin 0.2 mg/dL (0.2-1.3) 09/03/18 06:05 AST 29 U/L (14-36) 09/03/18 06:05 ALT 15 U/L (9-52) 09/03/18 06:05 Alkaline Phosphatase 63 U/L (38-126) 09/03/18 06:05 Total Protein 9.7 g/dL (6.3-8.3) H 09/03/18 06:05 Albumin 5.2 g/dL (3.5-5.0) H 09/03/18 06:05 Globulin 4.5 gm/dL (2.2-3.9) H 09/03/18 06:05 Albumin/Globulin Ratio 1.2 (1.0-2.1) 09/03/18 06:05 Lipase 105 U/L (23-300) 09/03/18 06:05 Urine Color Straw (YELLOW) 09/03/18 06:05 Urine Clarity Clear (Clear) 09/03/18 06:05 Urine pH 5.0 (5.0-8.0) 09/03/18 06:05 Ur Specific [place] 1.009 (1.003-1.030) 09/03/18 06:05 Urine Protein Negative mg/dL (NEGATIVE) 09/03/18 06:05 Urine Glucose (UA) Normal mg/dL (Normal) 09/03/18 06:05 Urine Ketones Negative mg/dL (NEGATIVE) 09/03/18 06:05 Urine Blood 2+ (NEGATIVE) H 09/03/18 06:05 Urine Nitrate Negative (NEGATIVE) 09/03/18 06:05 Urine Bilirubin Negative (NEGATIVE) 09/03/18 06:05 Urine Urobilinogen Normal mg/dL (0.2-1.0) 09/03/18 06:05 Ur Leukocyte Esterase Trace Cherise/uL (Negative) 09/03/18 06:05 Urine WBC (Auto) 16 /hpf (0-5) H 09/03/18 06:05 Urine RBC (Auto) 3 /hpf (0-3) 09/03/18 06:05 Ur Squamous Epith Cells 3 /hpf (0-5) 09/03/18 06:05 Urine Bacteria Rare (<OCC) 09/03/18 06:05 Urine HCG, Qual Negative (NEGATIVE) 09/03/18 06:05 Urine HCG, Qual Negative (NEGATIVE) 09/03/18 06:05 O2 Sat by Pulse Oximetry: 99 (RA) Pulse Ox Interpretation: Normal Medical Decision Making Medical Decision Making: Plan - CT abd/pel - EKG - UA - Bloodwork CT scan showed inflammation of the small bowel but otherwise unremarkable. On re-exam, the patient reports improvement of symptoms. Lungs are CTA, heart is RRR, abdomen is soft, non-tender and tolerating PO well. Pt is ambulatory in the ED with steady gait. Disposition - Disposition Referrals: [facility] [Outside] [facility] [Outside] Disposition: HOME/ ROUTINE Disposition Time: 11:51 Condition: STABLE Additional Instructions: Follow up with the medical doctor/clinic within 1-2 days. Return if worsened. Prescriptions: Famotidine [Pepcid] 20 mg PO BID #20 tab Ibuprofen [Motrin] 1 tab PO TID PRN #30 tab PRN Reason: Pain Polyethylene Glycol 3350 [Miralax] 17 gm PO DAILY PRN #100 ml PRN Reason: Constipation Instructions: Acute Abdomen (Belly Pain), Adult (DC) Forms: [facility] (Icelandic) - Clinical Impression Clinical Impression: Abdominal pain - Scribe Statement The provider has reviewed the documentation as recorded by the Scribe Ngoc Ahumada All medical record entries made by the Scribe were at my direction and person ally dictated by me. I have reviewed the chart and agree that the record accurately reflects my personal performance of the history, physical exam, medical decision making, and the department course for this patient. I have also personally directed, reviewed, and agree with the discharge instructions and disposition.
[2018-09-03] MEDS ORDERED: Iodixanol 320 MG/ML 100 ML BOTTLE IV ONE (08:02)
[2018-09-03 11:54] VITALS: O2SAT 99
--- NOTE | 2018-09-03 12:07 | CT ---
Date of service: 09/03/2018 PROCEDURE: CT and pelvis. HISTORY: Left sided abdominal pain; history of hernia repair COMPARISON: Comparison made with prior CT scan of the abdomen and pelvis dated 01/14 2017. TECHNIQUE: Contiguous axial images of the abdomen and pelvis performed following intravenous injection of approximately 100 cc Visipaque 320 contrast material. Additional 2D sagittal and coronal reformats generated. Radiation dose: Total exam DLP = 223.56 mGy-cm. This CT exam was performed using one or more of the following dose reduction techniques: Automated exposure control, adjustment of the mA and/or kV according to patient size, and/or use of iterative reconstruction technique. FINDINGS: LOWER THORAX: Small hiatal hernia. LIVER: Liver exhibits normal size. Mild diffuse fatty hepatic infiltration. Tiny 2.5 mm low-attenuation focus superior posterior aspect right lobe liver too small to characterize though unchanged from prior exam portal and splenic veins are opacified. The the GALLBLADDER AND BILE DUCTS: Gallbladder physiologically distended. No evidence of intraluminal gallbladder calculi. PANCREAS: Unremarkable. No mass. No ductal dilatation. SPLEEN: Unremarkable. No splenomegaly. ADRENALS: Mildly prominent left adrenal gland.. KIDNEYS AND URETERS: Kidneys demonstrate symmetric nephrograms. No evidence of nephrolithiasis or hydronephrosis. There is a small elliptical shaped focus of low attenuation posterolateral cortex mid pole left kidney that probably represents a hyperdense cyst. Renal ultrasound follow-up could confirm. BLADDER: Urinary bladder physiologically distended. No evidence of intraluminal urinary bladder calculi. REPRODUCTIVE: Questionable tiny left ovarian follicular cyst. APPENDIX: No evidence of acute appendicitis BOWEL: Evaluation of the bowel is somewhat limited due to the lack of oral contrast material. Of the stomach is incompletely distended. Multiple nondistended fluid-filled loops of small bowel up present a few of which exhibit mild wall thickening. Findings may represent early enteritis. There is also a moderately large amount of stool seen throughout the colon consistent with fecal retention/constipation. PERITONEUM: No evidence of free intraperitoneal air. Small fat containing umbilical hernia. LYMPH NODES: Unremarkable. No enlarged lymph nodes. VASCULATURE: Unremarkable. No aortic aneurysm. No aortic atherosclerotic calcification or mural plaque present. BONES: No fracture or destructive lesion. OTHER FINDINGS: None. IMPRESSION: Mild fatty hepatic infiltration.. Small low-attenuation focus seen in the posterior superior aspect right lobe liver too small to characterize though stable since prior exam. Suspect hyperdense left renal cyst. Renal ultrasound could confirm if necessary. Small fat containing umbilical hernia. Multiple nondistended fluid-filled loops of small bowel some of which exhibit mild wall thickening. Findings may represent early enteritis. There is also a moderately large amount of stool seen throughout the colon consistent with fecal retention/constipation
[2018-09-03 12:55] VITALS: BP 121/86; PULSE 78; RESP 20; TEMP 97.9
--- NOTE | 2018-09-04 17:53 | CARD ---
APPROVED REPORT Date of service: 09/03/2018 EKG Measurement Heart [id number] [place] [id number] [id number] <Conclusion> Normal sinus rhythm Possible Left atrial enlargement Borderline ECG
== END 2018-09-03 12:55 | disposition home or self-care (01) ==
LOC: C.ER 05:10 → SUPCPDRO 05:10 → C.ER 12:55
DX: R10.32 Left lower quadrant pain (principal)
CPT/HCPCS: 74177; 80053; 81001; 83690; 84703; 85025; 93005; 96374; 99284; J1885; Q9967

== ENCOUNTER 2018-09-07 19:33 | Emergency (ER) | payer OTHER ==
[2018-09-07 20:04] VITALS: BP 135/92; PULSE 95; RESP 20; TEMP 98.9; O2SAT 98
[2018-09-07] MEDS ORDERED: Sodium Chloride 0.9% 1,000 ML IV STA (20:09)
[2018-09-07] MEDS ORDERED: Sodium Chloride 0.9% 1,000 ML ONE (20:19)
[2018-09-07 20:51] LABS: BASO # 0.1 K/uL (0.0-0.2); BASO % 0.5 % (0.0-2.0); EOS % 0.1 % (0.0-4.0); HEMOGLOBIN 13.7 g/dL (11.0-16.0); LYMPH # 1.3 K/uL (1.0-4.3); LYMPH % 9.4 % (20.0-40.0); MEAN CELL VOLUME 82.6 fL (81.0-99.0); MEAN CORPUSCULAR HEMOGLOBIN 27.5 pg (27.0-31.0); MEAN CORPUSCULAR HGB CONC 33.2 g/dL (33.0-37.0); MONO # 0.5 K/uL (0.0-0.8); MONO % 3.5 % (0.0-10.0); NEUT # 11.6 K/uL (1.8-7.0); NEUT % 86.5 % (50.0-75.0); PLATELET COUNT 333 K/uL (130-400); RED CELL DISTRIBUTION WIDTH 15.4 % (11.5-14.5); WHITE BLOOD COUNT 13.5 K/uL (4.8-10.8)
[2018-09-07 20:56] LABS: HCG,QUALITATIVE URINE NEGATIVE (NEGATIVE)
[2018-09-07 21:09] LABS: ALB/GLOB RATIO 1.4 (1.0-2.1); ALT/SGPT 15 U/L (9-52); AST/SGOT 24 U/L (14-36); BLOOD UREA NITROGEN 16 mg/dL (7-17); CALCIUM 9.5 mg/dl (8.6-10.4); GFR NON-AFRICAN AMERICAN > 60
[2018-09-07 21:16] LABS: SQUAMOUS EPITHIAL 9 /hpf (0-5); URINE BACTERIA FEW (<OCC); URINE BILIRUBIN NEGATIVE (NEGATIVE); URINE BLOOD NEGATIVE (NEGATIVE); URINE CLARITY Hazy (Clear); URINE COLOR Yellow (YELLOW); URINE GLUCOSE (UA) NORMAL (Normal); URINE LEUKOCYTE ESTERASE 1+ Leu/uL (Negative); URINE PROTEIN 1+ mg/dL (NEGATIVE); URINE UROBILINOGEN NORMAL mg/dL (0.2-1.0)
[2018-09-07] MEDS ORDERED: Penicillin G Benzathine 1.2 Mill Unit/2 ml Syr IM STA (21:19)
[2018-09-07] MEDS ORDERED: Penicillin G Benzathine 1.2 Mill Unit/2 ml Syr IM ONE (21:29)
--- NOTE | 2018-09-07 21:40 | C.PDOC ---
History Of Present Illness Patient is a 28 year old female who presents to the ED c/o severe sore throat and states that she is unable to swallow and feels like there is "something raw there." Patient looks uncomfortable and is spitting saliva. Patient denies any fever, chills, SOB. Time Seen by Provider: 09/07/18 20:05 Chief Complaint (Nursing): ENT Problem History Per: Patient History/Exam Limitations: no limitations Current Symptoms Are (Timing): Still Present Associated Symptoms: Sore Throat (severe). denies: Fever, Chills Recent travel outside of the [place]: No Additional History Per: Patient Past Medical History Reviewed: Historical Data, Nursing Documentation, Vital Signs Vital Signs: Last Vital Signs Temp 98.9 F 09/07/18 20:01 Pulse 95 H 09/07/18 20:01 Resp 20 09/07/18 20:01 BP 135/92 H 09/07/18 20:01 Pulse Ox 98 09/07/18 20:01 Primary Care Provider: FAMILY PROVIDER,NO - Medical History PMH: Anxiety, Asthma Surgical History: Hernia Repair Family History: States: Unknown Family Hx - Social History Hx Tobacco Use: No Hx Alcohol Use: Yes Hx Substance Use: No - Immunization History Hx Tetanus Toxoid Vaccination: No Hx Influenza Vaccination: No Hx Pneumococcal Vaccination: No Review Of Systems Except As Marked, All Systems Reviewed And Found Negative. Constitutional: Positive for: Other (uncomfortable). Negative for: Fever, Chills ENT: Positive for: Throat Pain (severe) Respiratory: Negative for: Shortness of Breath Physical Exam - Physical Exam Appears: Non-toxic, No Acute Distress, Other (uncomfortable) Skin: Normal Color Head: Atraumatic, Normacephalic Eye(s): bilateral: Normal Inspection Ear(s): Bilateral: Normal Nose: No Discharge, No Tenderness Oral Mucosa: Moist Tongue: Normal Appearing Lips: Normal Appearing Teeth: Normal Dentition Throat: Erythema (really red), No Exudate, Drooling (spitting saliva) Neck: Normal ROM, Supple Lymphatic: Adenopathy (anterior cervical) Cardiovascular: Rhythm Regular, No Murmur Respiratory: Normal Breath Sounds, No Rales, No Rhonchi, No Wheezing Neurological/Psych: Oriented x3, Normal Speech, Normal Cognition ED Course And Treatment - Laboratory Results Result Diagrams: 09/07/18 20:36 05/16/19 20:36 Lab Results: Total Bilirubin 0.4 mg/dL (0.2-1.3) 09/07/18 20:36 AST 24 U/L (14-36) 09/07/18 20:36 ALT 15 U/L (9-52) 09/07/18 20:36 Alkaline Phosphatase 66 U/L (38-126) 09/07/18 20:36 Total Protein 8.6 g/dL (6.3-8.3) H 09/07/18 20:36 Albumin 5.0 g/dL (3.5-5.0) 09/07/18 20:36 Globulin 3.7 gm/dL (2.2-3.9) 09/07/18 20:36 Albumin/Globulin Ratio 1.4 (1.0-2.1) 09/07/18 20:36 Urine Color Yellow (YELLOW) 09/07/18 20:36 Urine Clarity Hazy (Clear) 09/07/18 20:36 Urine pH 8.0 (5.0-8.0) 09/07/18 20:36 Ur Specific [place] 1.024 (1.003-1.030) 09/07/18 20:36 Urine Protein 1+ mg/dL (NEGATIVE) H 09/07/18 20:36 Urine Glucose (UA) Normal mg/dL (Normal) 09/07/18 20:36 Urine Ketones Negative mg/dL (NEGATIVE) 09/07/18 20:36 Urine Blood Negative (NEGATIVE) 09/07/18 20:36 Urine Nitrate Negative (NEGATIVE) 09/07/18 20:36 Urine Bilirubin Negative (NEGATIVE) 09/07/18 20:36 Urine Urobilinogen Normal mg/dL (0.2-1.0) 09/07/18 20:36 Ur Leukocyte Esterase 1+ Cherise/uL (Negative) H 09/07/18 20:36 Urine WBC (Auto) 20 /hpf (0-5) H 09/07/18 20:36 Urine RBC (Auto) 3 /hpf (0-3) 09/07/18 20:36 Ur Squamous Epith Cells 9 /hpf (0-5) H 09/07/18 20:36 Urine Bacteria Few (<OCC) H 09/07/18 20:36 Urine HCG, Qual Negative (NEGATIVE) 09/07/18 20:36 Urine HCG, Qual Negative (NEGATIVE) 09/07/18 20:36 O2 Sat by Pulse Oximetry: 98 (on RA) Pulse Ox Interpretation: Normal Progress Note: Plan: Labs. Toradol 30mg IVP. Decadron 10mg IVP. Bicillin L-A ing. IV Fluids. Labs. On re-evaluation patient feels better, UA with signs of UTI. Patient is being d/c home on keflex po with PMD follow up. Disposition - Disposition Referrals: [facility] [Outside] Disposition: HOME/ ROUTINE Disposition Time: 21:55 Condition: IMPROVED Additional Instructions: Follow up in Clinic within 1-2 days. Return to Ed if feel worse. Prescriptions: Cephalexin Susp [Keflex] 10 ml PO Q6 #280 ml Ibuprofen Susp [Motrin Oral Susp] 20 ml PO Q6 #600 ml Instructions: Urinary Tract Infection, Adult (DC), Strep Throat (DC) Forms: [facility] (Latvian), Work Excuse - Clinical Impression Clinical Impression: Pharyngitis, UTI (urinary tract infection) - PA / FISHER CLAM / Resident Statement MD/DO has reviewed & agrees with the documentation as recorded. - Scribe Statement The provider has reviewed the documentation as recorded by the Rudi Williamson
[2018-09-07 22:29] LABS: BANDS 1 % (0-2); LYMPHOCYTE 6 % (20-40); MONOCYTE 1 % (0-10); NEUTROPHIL 92 % (50-75); PLATELET ESTIMATE NORMAL (NORMAL); TOTAL CELLS COUNTED 100
== END 2018-09-07 22:34 | disposition home or self-care (01) ==
LOC: C.ER 19:33
DX: J02.9 Acute pharyngitis, unspecified (principal); N39.0 Urinary tract infection, site not specified
CPT/HCPCS: 80053; 81001; 84703; 85025; 96361; 96372; 96374; 96375; 99283; J0561; J1100; J1885; J7030